=== PATIENT | female | born 1970 | race Caucasian/White ===

== ENCOUNTER → 2019-02-12 | Outpatient (CLI) | payer BC, OTHER ==
[~2019-02-12] MED LIST: BIRTH CONTROL; CYCL10 PO; HYDCHL25 PO; Hydrochlorothia25 MG PO; IBUP800 PO; NAPR500 PO; ONDA8ODT MM; OXYACE5T PO; VALD20; ZOLP10 PO
[2019-02-14 15:07] LABS: HPV 16 Negative (Negative); HPV 18 Negative (Negative); HPV OTHER HR TYPES Negative (Negative)
== END | disposition home or self-care (01) ==
LOC: LAB 19:19 → LAB SHORT 19:19
PROVIDERS: Obstetrics & Gynecology Gynecology
DX: Z12.4 Encounter for screening for malignant neoplasm of cervix (principal)
CPT/HCPCS: 87624; G0123

== ENCOUNTER 2020-01-06 09:11 | Day surgery (SDC) | payer OTHER ==
[~2020-01-06] VITALS: Ht 172.7 cm; Wt 88.9 kg
[~2020-01-06 09:11] MED LIST changes: +BUPR100 PO; +Dyazide 37.5-21 EACH PO; +Flonase 0.05% N16 GM; +Naltrexone HCl50 MG PO
== END 2020-01-06 11:36 | disposition home or self-care (01) ==
LOC: ORSCSDS 09:11
PROVIDERS: Internal Medicine Gastroenterology
PROC: 0DBH8ZX Excision of Cecum, Via Natural or Artificial Opening Endoscopic, Diagnostic (ICD-10-PCS; principal; 2020-01-06 10:30)
PROC: 0DBM8ZX Excision of Descending Colon, Via Natural or Artificial Opening Endoscopic, Diagnostic (ICD-10-PCS; principal; 2020-01-06 10:30)
DX: Z12.11 Encounter for screening for malignant neoplasm of colon (principal); D12.0 Benign neoplasm of cecum; D12.4 Benign neoplasm of descending colon; Z80.0 Family history of malignant neoplasm of digestive organs
CPT/HCPCS: 88305; J2704; J7120

== ENCOUNTER → 2020-08-08 | Outpatient (CLI) | payer OTHER | LOC: LAB 10:00 → LAB SHORT 10:00 | DX: L08.9 Local infection of the skin and subcutaneous tissue, unspecified (principal) | CPT/HCPCS: 87070; 87075; 87205 ==